=== PATIENT | female | born 1940 | race Caucasian/White ===

== ENCOUNTER 2017-01-18 17:20 | Inpatient (IN) | payer OTHER ==
[~2017-01-18] VITALS: Ht 160 cm; Wt 84.6 kg
[~2017-01-18 17:20] MED LIST: ATIVAN1 MG PO; BACO TOP; FLO4 PO; HIBICLENS118 ML TOP; LAC PO; LIPI10 PO; MAC100 PO; MULTIVITAMIN1 SGL PO; NOR10T PO; OMEPRAZOLE DR20 M1 PO; PAX20 PO; PAXIL10 MG PO; PRILOSEC20 MG PO; RESTORIL15 MG PO; SENNA8.6 M2 PO; SER25 PO; THERAGRAN-M1 TA4 PO; VITAMIN C500 MG PO; VITC PO; ZES5 PO; [UNRECOGNIZED DRUG - REMARK]
--- NOTE | 2017-01-18 17:40 | NUR ---
PT TO ED FOR EVAL OF FREQUENT URINATION. PT STATES THIS STARETED YESTERDAY AND HAS INCREASED TODAY. UPON ARRIVAL TO ED PT REQUESTED TO BE PLACED ON BED NIELSEN. PT PLACED ON BEDPAN. SHE STATED SHORTLY AFTER THAT SHE WAS DONE. BED NIELSEN REMOVED . NO URINE NOTED IN BED NIELSEN. PT STATES " I STILL FEEL LIKE I HAVE TO GO" DENIES ANY BURNING OR DISCOMFORT WITH URINATINO. SKIN WARM AND DRY. PT CLOTHING REMOVED PLACED IN GOWN AND CM.
--- NOTE | 2017-01-18 17:49 | NUR ---
MSE COMPLETED BY DR. ORTIZ
--- NOTE | 2017-01-18 17:57 | NUR ---
PER DR. ORTIZ FOR PT TO HAVE BLADDER SCANNER COMPLETED FIRST IN ORDER TO DETERMINE FOR PT TO EITHER HAVE A JACOBSON CATHETER OR STRAIGHT CATH PERFORED AFTERWARDS, WILL CARRY OUT ORDERS
--- NOTE | 2017-01-18 18:36 | NUR ---
PT REPORTS HAVING A 5/10 HEADACHE AND REQUESTING PAIN MEDICATION, DR. ORTIZ MADE AWARE, PER DR. ORTIZ FOR PT TO HAVE 1 GM OF TYLENOL PO, PT MEDICATED PER VERBAL ORDER AND TOLERATED WELL, CALL LIGHT WITHIN REACH, WILL CONTINUE TO MONITOR
[2017-01-18 18:38] LABS: BASOPHIL % 0.4 % (0-2); PLATELET COUNT 262 x10^3mcL (130-400); RED CELL DISTRIBUTION WIDTH 13.1 % (11.5-14.5)
--- NOTE | 2017-01-18 19:10 | NUR ---
LAB AT BEDSIDE FOR BLOOD CULTURES AT THIS TIME
--- NOTE | 2017-01-18 19:20 | NUR ---
ASSUMED CARE FROM PRIOR RN. CONCUR W/ RN NOTE. PENDING FC PLACEMENT PER ORDER. COMFORT MEASURES AND SUPPORTIVE CARE CONTINUED.
--- NOTE | 2017-01-18 19:42 | NUR ---
CATH INSERTED BY KUSHAL ALVARADO. PT JULIÁN WELL. URINE OBTAINED AND SENT. SUPPORTIVE CARE CONTINUED. IVF AND IV ABX INITIATED.
[2017-01-18 19:44] LABS: CHLORIDE SERUM 101 mmol/L (98-107); CREATININE SERUM 0.8 mg/dL (0.6-1.0); GLUCOSE SERUM 102 mg/dL (74-106); POTASSIUM SERUM 3.8 mmol/L (3.5-5.1); SODIUM SERUM 134 mmol/L (136-145)
[2017-01-18 19:56] LABS: ALBUMIN 3.6 g/dL (3.4-5.0); ALKALINE PHOSPHATASE 66 U/L (46-116); ALT/SGPT 15 U/L (14-59); AMYLASE 30 U/L (25-115); AST/SGOT 12 U/L (15-37); BILIRUBIN TOTAL 0.33 mg/dL (0.20-1.00); CHOLESTEROL 169 mg/dL (<200); HDL CHOLESTEROL 59 mg/dL (40-60); LIPASE 80 IU/L (73-393); T4(THYROXINE) 6.8 ug/dL (4.7-13.3)
[2017-01-18 20:09] LABS: UA SPECIFIC GRAVITY <=1.005 (1.005-1.035); microscopic required? YES; urine erythrocyte 1+ (NEGATIVE)
[2017-01-18 20:30] LABS: AMPHETAMINE QUAL UR NONE DETECTED (NEG <=1000)
--- NOTE | 2017-01-18 20:40 | NUR ---
DAUGHTER AT BS. KARISHAM SENT HOME WITH DAUGHTER. DAUGHTER VERIFIES PT IS HARD OF HEARING, BUT DID NOT BRING HER HEARING AIDES. DAUGHTER STATES "SHE CAN BE VERY DIFFICULT...I'M SORRY".
[2017-01-18 21:28] LABS: MAGNESIUM 2.1 mg/dL (1.8-2.4); PHOSPHOROUS 3.6 mg/dL (2.5-4.9)
[2017-01-18 21:54] VITALS: BP 164/67
--- NOTE | 2017-01-18 22:13 | NUR ---
RECEIVED PATIENT FROM ED VIA RASHAWN HEADLEY ALERT AND ORIENTED, TELE # 19 SR, IV ACCESS TO C/O PAIN TO ABD ANDF BACK WILL MEDICATE ORDERED, ORIENTED PATIENT TO ROOM AND SURROUNDINGS, BED IN LOW POSITION, BED RAIL UP X 2, CALL LIGHT WITHIN REACH, WILL ENDORSE CARE TO PRIMARY NURSE DORCAS ALVARADO
--- NOTE | 2017-01-18 22:50 | NUR ---
STARTED ON IVF NS AT 100ML/HR VIA PERIPHERAL LINE AT THE RIGHT HAND , IV SITE CLEAR AND INTACT. NO S/S OF INFLITRATION AT THE IV SITE.
--- NOTE | 2017-01-18 23:52 | NUR ---
PT ASKING FOR SLEEPING PILL, UNABLE TO SLEEP, DR CHERRY MADE AWARE WITH ORDER AND CARRIED OUT. WILL CONTINUE TO MONITOR.
--- NOTE | 2017-01-19 01:29 | NUR ---
PATIENT ABLE TO SLEEP AT SHORT INTERVALS. PT AWAKE AT THIS TIME, VERY ANXIOUS AND RESTLESS, TRING TO GET OUT OF BED, PULLING OUT IV ACCESS, ATIVAN 1MG GIVEN IVP PRN MEDICATION. REPOSTIONED FOR COMFORT. BED IN LOWEST POSITION. CALL LIGHT WITHIN REACH. WILL CONTINUE TO MONITOR.
[2017-01-19 05:06] VITALS: BP 135/57
[2017-01-19 05:12] VITALS: BP 135/57
--- NOTE | 2017-01-19 05:37 | NUR ---
CALM AT THIS TIME. EYES CLOSED, NO FACIAL GRIMACING NOTED. RESPIRATION EVEN AND UNLABOLRED. NO FYRTHER VOMITING NOTED. NO ADVERSE REACTION FROM ATB THERAPY FOR MANAGEMENT OF UTI. KEPT CLEAN AND DRY. ALL NEEDS ATTENDED.
--- NOTE | 2017-01-19 07:30 | NUR ---
AAO X3.FORGETFUL AT TIME.DENIE ANY PAIN/DISCOMFORT.LUNG SOUND DIM ON THE BASES.IVF NS GOING AT 100 ML/HR INFUSING WELL.JACOBSON DRAINING TO GRAVITY YELLOW IN COLOR.BED ALARM ON FOR FALL PRECATUION.CALL LIGHT WITHIN REACH.INSTRUCTED TO CALL FOR ANY PAIN/DISCOMFORT.WILL CONTINUE TO MONITOR.
--- NOTE | 2017-01-19 08:31 | NUR ---
AND MEDICINE TEAM AT BEDSIDE.INFORMED PT ABOUT THE PLAN OF CARE.ON ANTIBIOTIC FOR UTI.
[2017-01-19 09:00] VITALS: BP 144/64
[2017-01-19 12:56] VITALS: BP 137/56
[2017-01-19 13:05] VITALS: Ht 160 cm; Wt 84.6 kg
--- NOTE | 2017-01-19 14:30 | NUR ---
GAVE PT ATIVAN 0.5 MG PO ORDERED FOR C/O FEELING ANXIOUS.
--- NOTE | 2017-01-19 16:23 | NUR ---
GAVE PT ZOFRAN 4 MG IVP ORDERED FOR C/O N/V.
[2017-01-19 17:06] VITALS: BP 149/52
--- NOTE | 2017-01-19 18:28 | NUR ---
NO SIGNIFICANT CHANGE NOTED.WILL ENDORSE TO NEXT SHIFT.
--- NOTE | 2017-01-19 19:40 | NUR ---
RECEIVED PATIENT RESTING IN BED, PT A&O X 3. PT OPENS EYES SPONTANEOUSLY, PT ABLE TO MAKE NEEDS KNOWN, PT FOLLOWS COMMANDS. [employer] 15. PT DENIES DIZZINESS/VILLATORO. TRACHEA MIDLINE. NO SCLERAL EDEMA NOTED. NO DRAINAGE FROM EENT. PT STATES SHE IS BILL [place]. PATIENT IS BREATHING EVEN AND UNLABORED VIA ROOM AIR. PT DENIES SOB. LUNG SOUNDS DIMINISHED BILATERALLY. CHEST RISES SYMMETRICALLY. S1, S2 AUSCULTATED. CHEST WALL STABLE. PT DENIES CP AT THIS TIME. SKIN IS DRY, WTT, INTACT. PERIPHERAL PULSES ARE MODERATE TO BUE AND WEAK TO BLE. CAP REFILL <3 SEC. NO EDEMA NOTED. GENERALIZED WEAKNESS. PT HAS ACTIVE ROM X 4 EXTREMITIES. PT IS ON CLEAR LIQUID DIET. NO S/S OF N/V/D AT THIS TIME. PATIENT'S ABDOMEN IS SOFT, ROUND, AND NONTENDER TO PALPATION. PT HAS ACTIVE BOWEL SOUNDS X 4Q. NO BM AT THIS TIME. PT HAS JACOBSON CATHETER IN PLACE AND SECURED DRAINING YELLOW URINE TO GRAVITY DRAINAGE BAG. IV NOTED TO RFA, WNL. NO VISITORS AT THIS TIME. BED IN LOWEST POSITION, WHEELS LOCKED, SIDE RAILS X 2, CALL LIGHT WITHIN REACH, WILL CONTINUE TO MONITOR.
--- NOTE | 2017-01-19 20:30 | NUR ---
PATIENT REQUESTS MEDICATION RESTORIL FOR SLEEP AID.
[2017-01-19 20:54] VITALS: BP 132/53
--- NOTE | 2017-01-20 00:15 | NUR ---
PATIENT REPORTS NAUSEA AND HAD AN EPISODE OF SMALL AMOUNT VOMITING X 1. PATIENT ALSO REQUESTED MEDICATION FOR HEARTBURN. DR CHERRY PAGED AND NEW ORDERS RECEIVED. GI COCKTAIL AND ZOFRAN GIVEN, SEE EMAR. PT TOLERATED MEDICATION. WILL CONTINUE TO MONITOR.
--- NOTE | 2017-01-20 01:30 | NUR ---
PREVIOUS IV SITE LEAKING. NEW IV STARTED TO LT FOREARM. PT TOLERATED WELL. NS CONTINUES INFUSING. WILL CONTINUE TO MONITOR.
--- NOTE | 2017-01-20 04:20 | NUR ---
PATIENT C/O OF HEARTBURN. DR CHERRY PAGED AND AWARE, PER DR CHERRY, GIVE 0700AM SCHEDULED DOSE OF PRILOSEC. PRN PED GIVEN AT THIS TIME, SEE EMAR. NO PT DENIES CHEST PAIN, PT DESCRIBES DISCOMFORT HEARTBURN. NO S/S OF RESPIRATORY DISTRESS. PT BREATHING EVEN AND UNLABORED VIA ROOM AIR. O2 SAT 97%. WILL CONTINUE TO MONITOR.
--- NOTE | 2017-01-20 05:00 | NUR ---
PT IS RESTING IN BED AT THIS TIME. NO S/S OF DISTRESS NOTED, NO SIGNIFICANT CHANGES. BED IN LOWEST POSITION, SIDE RAILS UP X3, SCDS IN PLACE, CALL LIGHT WITHIN REACH. WILL ENDORSE ALL CARE TO ONCOMING SHIFT RN.
[2017-01-20 05:05] VITALS: BP 125/55
[2017-01-20 06:48] LABS: BASOPHIL % 0.1 % (0-2); PLATELET COUNT 210 x10^3mcL (130-400); RED CELL DISTRIBUTION WIDTH 12.3 % (11.5-14.5)
--- NOTE | 2017-01-20 07:41 | NUR ---
RECEIVED AWAKE, ALERT AND ORIENTED. FORGETFUL AT TIMES. NO ACUTE RESP. DISTRESS NOTED. PT C/P CONSTIPATION AND HEARTBURN, [place] GIVEN. NO C/O PAIN AT THIS TIME. VS WNL. IVF INFUSING WELL AND SITE CLEAR. CALL LIGHT WITHIN REACH. WILL CONTINUE WITH PLAN OF CARE.
[2017-01-20 08:15] VITALS: BP 117/47
[2017-01-20 08:42] LABS: CALCIUM 8.6 mg/dL (8.5-10.1); CARBON DIOXIDE 21.2 mmol/L (21-32); CHLORIDE SERUM 97 mmol/L (98-107); CREATININE SERUM 0.7 mg/dL (0.6-1.0); GLUCOSE SERUM 104 mg/dL (74-106); PHOSPHOROUS 3.9 mg/dL (2.5-4.9); POTASSIUM SERUM 4.3 mmol/L (3.5-5.1); SODIUM SERUM 128 mmol/L (136-145)
--- NOTE | 2017-01-20 10:21 | NUR ---
FLEETS ENEMA GIVEN, PT HAD SMALL BM X1. PERICARE DONE.
--- NOTE | 2017-01-20 10:54 | NUR ---
PT C/O BACK PAIN, MEDICATED WITH NORCO.
--- NOTE | 2017-01-20 15:58 | NUR ---
PT APPEARS VERY ANXIOUS, MEDICATED WITH ATIVAL PO PER PRN ORDERS.
[2017-01-20 16:16] VITALS: BP 137/60
--- NOTE | 2017-01-20 17:36 | NUR ---
PT CALM AND RESTING AT THIS TIME. NO DISTRESS NOTED. NO C/O PAIN OR DISCOMFORT.
--- NOTE | 2017-01-20 18:41 | NUR ---
PT REMAINS IN NO DISTRESS. AWAKE AND ALERT. CALM AT THIS TIME. NO C/O PAIN OR DISCOMFORT. NO CHANGES IN VS. IVF INFUSING WELL AND SITE CLEAR. CALL LIGHT WITHIN REACH. WILL BE ENDORSED TO INCOMING SHIFT.
--- NOTE | 2017-01-20 20:48 | NUR ---
PT'S IN BED NO ACUTE DISTRESS NOTED, LUNG SOUNDS CTA , ABD SOFT BS ACTIVE X4, JACOBSON TO GRAVITY DRAINING WELL CLEAR YELLOW URINE , PIV INTACT INFUSING WELL. CALL LIGHT WITHIN PT'S REACH .WILL CON'T TO MONITOR PT.
--- NOTE | 2017-01-20 21:10 | NUR ---
PATIENT'S PLAN OF CARE WAS DISCUSSED AND REVIEWED WITH ETHNOLOGY TEACHER: DASHAWN MYLES I HAVE REVIEWED THE DATA COLLECTION BY ETHNOLOGY TEACHER (NAME): DASHAWN MYLES ENTERED ON (DATE/TIME): 01/21 2044 I CONCUR WITH THE DATA AND ANY EXCEPTIONS OR COMMENTS ARE LISTED BELOW:
[2017-01-20 22:08] VITALS: BP 128/57
--- NOTE | 2017-01-21 02:03 | NUR ---
PT'S IN BED WITH EYES CLOSED , PIV INTACT INFUSING WELL .
[2017-01-21 06:03] VITALS: BP 119/44
[2017-01-21 06:16] LABS: BASOPHIL % 0.4 % (0-2); PLATELET COUNT 206 x10^3mcL (130-400); RED CELL DISTRIBUTION WIDTH 12.7 % (11.5-14.5)
--- NOTE | 2017-01-21 06:23 | NUR ---
PT'S IN BED WITH EYES CLOSED , JACOBSON TO GRAVITY DRAINING WELL , STARTED BLADDER TRAINING ORDERED WILL ENDORSE THIS TO AM NURSE TO F/U. PIV INTACT INFUSING WELL , ALL DUE MEDS GIVEN NO [id number] NOTED.
[2017-01-21 06:39] LABS: CALCIUM 8.6 mg/dL (8.5-10.1); CARBON DIOXIDE 26.6 mmol/L (21-32); CHLORIDE SERUM 103 mmol/L (98-107); CREATININE SERUM 0.8 mg/dL (0.6-1.0); GLUCOSE SERUM 112 mg/dL (74-106); POTASSIUM SERUM 4.1 mmol/L (3.5-5.1); SODIUM SERUM 137 mmol/L (136-145)
--- NOTE | 2017-01-21 07:08 | NUR ---
RECEIVED Pt. AAOX4 RESPIRATIONS EVEN AND UNLABORED. DENIES PAIN/DISCOMFORT NO DISTRESS NOTED. MEDSURG Pt. DENIES CHEST PAIN/PRESSURE. IVF RUNNING TO LFA PATENT AND INTACT. JACOBSON CATHETER IN PLACE CLAMPED BY NIGHT NURSE. BED LOW/LOCKED. CALL LIGHT IN REACH.
--- NOTE | 2017-01-21 08:35 | NUR ---
MADE ROUNDS WITH DR. PAGE AND MEDICINE TEAM, Pt. TO HAVE JACOBSON CATHETER DISCONTINUED AND POSSIBLE DISCHARGE TODAY AND AGREED WITH PLAN OF CARE.
[2017-01-21 10:22] VITALS: BP 113/55
--- NOTE | 2017-01-21 14:36 | NUR ---
REMOVED Pt. CATHETER 800 ML URINE NOTED IN JACOBSON CATHETER DRAINAGE BAG, Pt. TOLERATED PROCEDURE WELL WILL CONTINUE TO MONITOR.
--- NOTE | 2017-01-21 14:38 | NUR ---
Pt. C/O FEELING ANXIOUS ATIVAN ADMINISTERED WILL CONTINUE TO MONITOR.
--- NOTE | 2017-01-21 16:00 | NUR ---
Pt. CALM AND COOPERATIVE AT THIS TIME POST ATIVAN ADMINISTRATION.
--- NOTE | 2017-01-21 16:51 | NUR ---
Pt. VOIDED X 1 POST JACOBSON CATHETER REMOVAL, PERICARE RENDERED LINENS AND GOWN CHANGED, Pt. CLEAN AND DRY.
[2017-01-21 17:52] VITALS: BP 108/57
--- NOTE | 2017-01-21 18:11 | NUR ---
Pt. AAOX4 SOMETIMES FORGETUL, [place] RESPIRATIONS EVEN AND UNLABORED, DENIES PAIN/DISCOMFORT. NO DISTRESS NOTED. MEDSURG Pt. DENIES CHEST PAIN/PRESSURE. IVF RUNNING TO IV RFA PATENT AND INTACT. Pt. EATING DINNER TRAY TOLERATED DIET WELL HOB ELEVATED. Pt. INSTRUCTED TO USE IS. BED LOW/LOCKED. CALL LIGHT IN REACH.
--- NOTE | 2017-01-21 20:30 | NUR ---
RECEIVED PT IN BED AAOX4 NO QUINAULT NOTED, PT DENY PAIN , BS ACTIVE ABD SOFT NON-TENDER TO TOUCH ,LUNG SOUNDS CTA , PT'S VOIDNG WELL BRP WITH ASSIST , PIV INTACT INFUSING WELL . CALL LIGHT WITHIN PT;S REACH , WILLCON'T TO MONITOR PT CLOSELY .
[2017-01-21 21:20] VITALS: BP 116/50
--- NOTE | 2017-01-21 22:11 | NUR ---
POST FLEXERIL PT DENY BASCK SPASMS , WILL CON'T TO MONITOR PT.
--- NOTE | 2017-01-22 04:30 | NUR ---
I HAVE REVIEWED THE DATA COLLECTION BY JOVITA (NAME):DASHAWN MYLES ENTERED ON (DATE/TIME):01/21/172013. I CONCUR WITH THE DATA AND ANY EXCEPTIONS OR COMMENTS ARE LISTED BELOW:
--- NOTE | 2017-01-22 04:30 | NUR ---
PT'S IN BED WITH EYES CLOSED, TELE NSR , PIV INTACT INFUSING WELL .
[2017-01-22 05:59] VITALS: BP 127/52
[2017-01-22 06:00] LABS: BASOPHIL % 0.5 % (0-2); PLATELET COUNT 212 x10^3mcL (130-400); RED CELL DISTRIBUTION WIDTH 12.6 % (11.5-14.5)
--- NOTE | 2017-01-22 06:00 | NUR ---
ALL DUE MEDS GIVEN NO REACTION NOTED, PIV INTACT INFUSING WELL , PTS; VOIDING WELL VIA BEDPAN NO S/S OF URINARY DISTANTION NOTED , ABD SOFT .
[2017-01-22 06:21] LABS: CALCIUM 8.7 mg/dL (8.5-10.1); CARBON DIOXIDE 26.6 mmol/L (21-32); CHLORIDE SERUM 103 mmol/L (98-107); CREATININE SERUM 0.8 mg/dL (0.6-1.0); GLUCOSE SERUM 120 mg/dL (74-106); POTASSIUM SERUM 4.6 mmol/L (3.5-5.1); SODIUM SERUM 136 mmol/L (136-145)
--- NOTE | 2017-01-22 08:00 | NUR ---
RC'D PT RESTING IN BED WITH NO APPARENT SIGNS OF DISTRESS. A/A/O/X4, SPEECH CLEAR AND APPROPRIATE. NOTED FORGETFUL AT TIMES. [place] IN BOTH EARS. MED-SURG PT. DENIES CHEST PAIN/PRESSURE. PALP PULSES, NO EDEMA NOTED. RESPIRATION EQUAL AND UNLABORED BILAT. DIMINSHED IN BASES. ON RA, DENIES SOB. ABDOMEN SOFT AND NONTENDER. ACTIVE BS. VOIDS FREELY, DENIES BURNING. GENERALIZED WEAKNESS. SKIN W/D/I. DENIES PAIN AT THIS TIME. IV PATENT AND INFUSING. BED IN LOW POSITION. EDUCATED ON USING CALL LIGHT WHEN NEEDING ASSISTANCE. CALL LIGHT IN REACH. WILL CONTINUE TO MONITOR.
[2017-01-22 09:40] VITALS: BP 139/51
[2017-01-22 12:50] VITALS: BP 125/65
[2017-01-22] MEDS ORDERED: LEVAQUIN750 MG PO ×2 (13:08→14:22)
[2017-01-22] MEDS ORDERED: LAC PO (13:11)
[2017-01-22 14:06] VITALS: BP 125/65
--- NOTE | 2017-01-22 15:32 | NUR ---
PT PROVIDED WITH DC HOME INSTRUCTIONS. GIVEN MEDICATION EDUCATON. MADE AWARE PRESCRIPTIONS HAVE BEEN SENT TO PT'S SELECTED PHARMACY. MADE AWARE OF SCHEDULING FOLLOW UP APPT WITH PCP. INSTRUCTED ON IMPORTANCE OF COMPLETING ANTIBIOTIC TX ORDERED. MADE AWARE OF WORSENING SIGNS AND SYMPTOMS TO RETURN TO ED OR PRESENT TO PCP. PT VERBALIZED UNDERSTANDING OF INSTRUCTIONS. IV DC'D CATHTER INTACT. PT TRANSPORTED VIA WC TO THE LOBBY WITH ALL PERSONAL BELONGINGS IN HAND ACCOMPANIED BY SHIFT PRODUCTION ASSOCIATE AND [place] [employer] COATING MACHINE OPERATOR FREE OF ANY APPARENT STRESS.
== END 2017-01-22 15:32 | DRG 690 ==
LOC: ED 17:20 → DU 20:51 → MU 20:51 → DU 21:39 → MU 01-19 10:17
PROVIDERS: Emergency Medicine; Family Medicine; ADMIT Family Medicine
DX: N39.0 Urinary tract infection, site not specified (principal); E87.1 Hypo-osmolality and hyponatremia; R33.9 Retention of urine, unspecified; R31.9 Hematuria, unspecified; I10 Essential (primary) hypertension; K21.9 Gastro-esophageal reflux disease without esophagitis; K57.90 Diverticulosis of intestine, part unspecified, without perforation or abscess without bleeding; M16.0 Bilateral primary osteoarthritis of hip; K59.00 Constipation, unspecified; M19.90 Unspecified osteoarthritis, unspecified site; F41.9 Anxiety disorder, unspecified; D64.9 Anemia, unspecified; E66.9 Obesity, unspecified; Z68.33 Body mass index [BMI] 33.0-33.9, adult
CPT/HCPCS: 76770; 82962; 83880; 97110-GP; 97116-GP; 97530-GP; J1956; J2060; J2270; J2405; J7030; Q0092